=== PATIENT | female | born 1975 | race Caucasian/White ===

== ENCOUNTER 2020-04-19 17:40 | Outpatient (CLI) | payer BC | END 2020-04-19 23:59 | disposition home or self-care (01) | LOC: LAB.R 17:40 | PROVIDERS: ATTEND Physician Assistant | DX: N30.00 Acute cystitis without hematuria (principal) | CPT/HCPCS: 87086 ==

== ENCOUNTER 2020-08-22 07:37 | Outpatient (CLI) | payer BC | END 2020-08-22 07:38 | disposition critical access hospital (66) | LOC: EMS 07:37 | PROVIDERS: ATTEND Emergency Medicine | DX: M54.5 Low back pain (principal) | CPT/HCPCS: A0425; A0429 ==

== ENCOUNTER 2020-08-22 08:15 | Emergency (ER) | payer BC ==
[2020-08-22] MEDS ORDERED: KETOROLAC 30 MG/ML VIAL IM STA (08:32)
[2020-08-22] MEDS ORDERED: HYDROmorphone 2 MG/ML VIAL IM STA ×2 (08:32→09:48)
[2020-08-22] MEDS ORDERED: methocarbamoL 500 MG TABLET PO STA (08:33)
--- NOTE | 2020-08-22 08:34 | ED Physician Documentation ---
PD HPI BACK PAIN - Stated complaint Stated Complaint: LOW BACK PX - Chief complaint Chief Complaint: Back Pain - History obtained from History obtained from: Patient, EMS - History of Present Illness Timing - onset: Yesterday Timing - details: Abrupt onset (she was kneeling on the fllor playing with her cat and leaned to the side, with abrupt onset low back pain midline and to the right. Pain worse with ROM.) Location: Lower, Right Quality: Pain, Sharp. No: Tearing Associated symptoms: No: Fever, Weakness, Numbness, Incontinent of urine Improves with: Rest Worsened by: Movement, Twisting Contributing factors: Twisting. No: Lifting Similar symptoms before: Has not had sx before Recently seen: Not recently seen Review of Systems Constitutional: denies: Fever, Chills Nose: denies: Rhinorrhea / runny nose, Congestion Throat: denies: Sore throat Respiratory: denies: Cough : denies: Incontinent Skin: denies: Rash Neurologic: denies: Focal weakness, Numbness PD PAST MEDICAL HISTORY - Past Medical History Past Medical History: Yes Cardiovascular: None Respiratory: None Neuro: None Endocrine/Autoimmune: None - Present Medications Home Medications: Ambulatory Orders Medication Instructions Recorded Confirmed Ibuprofen [Motrin] 600 mg PO TID PRN #25 tab 08/22/20 Oxycodone HCl/Acetaminophen 1 each PO Q6H PRN #15 tab 08/22/20 [Percocet 5-325 mg Tablet] tiZANidine [Zanaflex] 4 mg PO Q8H PRN #25 tab 08/22/20 - Allergies Allergies/Adverse Reactions: Allergies Allergy/AdvReac Type Severity Reaction Status Date / Time No Known Drug Allergies Allergy Verified 08/22/20 08:23 PD ED PE NORMAL - Vitals Vital signs reviewed: Yes - General General: Alert and oriented X 3, Well developed/nourished, Other (appears in pain with guarding rom of the low back. ) - Neck Neck: Supple, no meningeal sign, No adenopathy - Cardiac Cardiac: RRR, No murmur - Respiratory Respiratory: Clear bilaterally - Abdomen Abdomen: Soft, Non tender - Back Back: Other (tender in left paralumbar soft tissue. No redness nor rash. ) - Derm Derm: Normal color, Warm and dry - Extremities Extremities: No edema, No calf tenderness / cord - Neuro Neuro: No motor deficit, No sensory deficit, Other (normal knee reflexes) Eye Opening: Spontaneous Motor: Obeys Commands Verbal: Oriented GCS Score: 15 Results - Vitals Vitals: Vital Signs - 24 hr 08/22/20 08/22/20 08/22/20 08:21 09:55 10:18 Temperature 37.2 C 37.1 C Heart Rate 71 63 67 Respiratory 18 16 16 Rate Blood Pressure 107/62 117/77 129/73 O2 Saturation 99 10 L 99 Oxygen O2 Source Room air - Rads (name of study) lumbar CT Radiology: Prelim report reviewed (no acute process), See rad report PD MEDICAL DECISION MAKING - ED course Complexity details: reviewed results, re-evaluated patient (improved ROM and pain after meds. ), considered differential, d/w patient Departure - Departure Disposition: 01 Home, Self Care Clinical Impression: Acute low back pain Qualifiers: Back pain laterality: right Sciatica presence: without sciatica Qualified Code(s): M54.5 - Low back pain Acute lumbar myofascial strain Qualifiers: Encounter type: initial encounter Qualified Code(s): S39.012A - Strain of muscle, fascia and tendon of lower back, initial encounter Condition: Stable Record reviewed to determine appropriate education?: Yes Instructions: ED Low Back Pain Injury, ED Sprain Strain Lumbar Follow-Up: SERGEI SAM MD [Primary Care Provider] - Prescriptions: Ibuprofen [Motrin] 600 mg PO TID PRN #25 tab PRN Reason: Pain Oxycodone HCl/Acetaminophen [Percocet 5-325 mg Tablet] 1 each PO Q6H PRN #15 tab PRN Reason: pain tiZANidine [Zanaflex] 4 mg PO Q8H PRN #25 tab PRN Reason: Spasms Comments: Heat and gentle stretching are good for spasm and stiffness. Physical treatments such as massage and chiropractic may be beneficial as well for this. Use some anti-inflammatory such as ibuprofen 3 times a day with food. Tizanidine muscle relaxant 3-4 times a day for spasms and stiffness. To that add Tylenol every 4-6 hours if needed for pain or Percocet if needed for worse pain. I would anticipate improvement gradually over a few days and resolution typically by a week. Recheck if not improving in that timeframe. Discharge Date/Time: 08/22/20 10:27
--- NOTE | 2020-08-22 09:20 | CT Report ---
PROCEDURE: LUMBAR SPINE WO INDICATIONS: Abrupt onset lumbar pain yesterday TECHNIQUE: Noncontrast 3 mm thick sections acquired from the T12 level to the sacrum. Sagittal and coronal refo rmats were constructed. For radiation dose reduction, the following was used: automated exposure co ntrol, adjustment of mA and/or kV according to patient size. COMPARISON: None. FINDINGS: Normal lumbar vertebral body height and alignment. There is no suspicious lytic or blastic osseous le obdulio. The intervertebral disc spaces are congruent and maintained. No significant degenerative changes of the endplates or posterior elements. Regional soft tissues are within normal limits. IMPRESSION: No acute finding. Reviewed by: Jacky Sprague MD on 08/22/2020 9:18 AM [facility] Approved by: Jacky Sprague MD on 08/22/2020 9:18 AM [facility] Station ID: [id number]
[2020-08-22 10:18] VITALS: BP 129/73
== END 2020-08-22 10:27 | disposition home or self-care (01) ==
LOC: EDUNIT# → ED 08:15
DX: S39.012A Strain of muscle, fascia and tendon of lower back, initial encounter (principal); X50.1XXA Overexertion from prolonged static or awkward postures, initial encounter; Y93.89 Activity, other specified
CPT/HCPCS: 72131; 96372; 99284; A9270; J1170

== ENCOUNTER 2022-03-26 08:00 | Outpatient (CLI) | payer BC | END 2022-03-26 23:59 | disposition home or self-care (01) | LOC: LAB 08:00 | PROVIDERS: ATTEND Registered Nurse | DX: N30.00 Acute cystitis without hematuria (principal); R82.79 Other abnormal findings on microbiological examination of urine | CPT/HCPCS: 87077; 87086; 87181 ==

== ENCOUNTER 2022-11-22 07:00 | Outpatient (CLI) | payer BC | END 2022-11-22 23:59 | disposition home or self-care (01) | LOC: LAB.S 07:00 | PROVIDERS: ATTEND Registered Nurse | DX: N30.00 Acute cystitis without hematuria (principal); R82.79 Other abnormal findings on microbiological examination of urine | CPT/HCPCS: 87077; 87086; 87181 ==

== ENCOUNTER 2023-04-10 08:00 | Outpatient (CLI) | payer BC | END 2023-04-10 23:59 | disposition home or self-care (01) | LOC: LAB 08:00 | PROVIDERS: ATTEND Physician Assistant | DX: R30.0 Dysuria (principal) | CPT/HCPCS: 87077; 87086; 87181 ==